=== PATIENT | female | born 1990 | race Caucasian/White ===

== ENCOUNTER 2017-08-03 18:23 | Emergency (ER) | payer MEDICAID ==
--- NOTE | 2017-08-03 19:14 | RAD ---
THREE VIEWS LEFT ANKLE 08/03/17 HISTORY: Patient fell 30 minutes ago and twisted left ankle. Left ankle injury after twisting. FINDINGS: There is subcutaneous soft tissue swelling seen at the lateral and anterior aspect of the left ankle. No fracture is seen. Ankle mortise is congruent. There is no dislocation seen. IMPRESSION: Subcutaneous soft tissue swelling without evidence of an acute fracture. POS: [facility]
[2017-08-03] MEDS ORDERED: Ketorolac Tromethamine 30 MG/ML VIAL ONE (19:23)
== END 2017-08-03 19:50 | disposition home or self-care (01) ==
LOC: ERS 18:23
DX: S93.402A Sprain of unspecified ligament of left ankle, initial encounter (principal); X50.1XXA Overexertion from prolonged static or awkward postures, initial encounter
CPT/HCPCS: 96372; J1885